=== PATIENT | female | born 1980 | race Caucasian/White ===

== ENCOUNTER → 2016-12-26 | Outpatient (CLI) | payer BC ==
--- NOTE | 2016-12-26 08:34 | Diagnostic Imaging Report ---
INDICATION: Abnormal liver function studies. Liver ultrasound. FINDINGS: Liver parenchyma is homogeneous with normal echotexture. Gallbladder is clear with no stones or wall thickening. The common duct is obscured by bowel gas. Right kidney appear normal. There is no ascites. IMPRESSION: Negative liver gallbladder ultrasound. Dictated by: Dictated on workstation # [id number]
== END ==
LOC: RAD 07:53
PROVIDERS: ATTEND Family Medicine
DX: R74.0 Nonspecific elevation of levels of transaminase and lactic acid dehydrogenase [LDH] (principal)
CPT/HCPCS: 76705

== ENCOUNTER 2018-10-26 08:17 | Outpatient (RCR) | payer BC | END 2018-10-26 09:26 | disposition home or self-care (01) | PROVIDERS: ATTEND Family Medicine | DX: M25.562 Pain in left knee (principal) ==